=== PATIENT | male | born 1980 | race Caucasian/White ===

== ENCOUNTER 2020-01-06 19:36 | Emergency (ER) | payer MEDICAID ==
[~2020-01-06] VITALS: Ht 175.3 cm; Wt 68.0 kg
[2020-01-06] MEDS ORDERED: NEOMY/BACITRA/POLYMYXIN B OINT UD PACKET TP ONE ×2 (20:15→20:18)
--- NOTE | 2020-01-06 20:25 | NUR ---
Patient discharged to home in stable condition. Written and verbal after care instructions given. Patient verbalizes understanding of instructions. Stressed follow up or return to ER for worsening s/s. PATIENT LEFT WITH STABLE GAIT.
[2020-01-06 20:28] VITALS: BP 130/88
== END 2020-01-06 20:29 | disposition home or self-care (01) ==
LOC: ER 19:39
PROC: 0M933ZZ Drainage of Right Elbow Bursa and Ligament, Percutaneous Approach (ICD-10-PCS; principal; 2020-01-06)
DX: M70.21 Olecranon bursitis, right elbow (principal); T14.90XS Injury, unspecified, sequela; W19.XXXS Unspecified fall, sequela; Z59.0 Homelessness
CPT/HCPCS: 20605; 73080; 99283; J3490; A4663